=== PATIENT | female | born 1995 | race Two or more races ===

== ENCOUNTER 2023-04-28 18:22 | Emergency (ER) | payer MEDICAID ==
[~2023-04-28] VITALS: Ht 162.6 cm; Wt 104.0 kg
[2023-04-28] MEDS ORDERED: AMOX875T4 PO (23:07)
[2023-04-28] MEDS ORDERED: ACE3T PO (23:07)
[2023-04-28 23:08] VITALS: BP 146/75; PULSE 86; RESP 18; TEMP 99; O2SAT 96
[2023-04-28] MEDS: KETOROLAC TROMETH 60MG/2ML VIAL IM ONE (23:36)
== END 2023-04-28 23:08 | disposition home or self-care (01) ==
LOC: ER 18:22
DX: J01.90 Acute sinusitis, unspecified (principal); Z79.1 Long term (current) use of non-steroidal anti-inflammatories (NSAID); Z79.899 Other long term (current) drug therapy
CPT/HCPCS: 81025; 96372; 99283; J1885